=== PATIENT | female | born 2000 | race Caucasian/White ===

== ENCOUNTER 2021-08-12 11:26 | Emergency (ER) | payer MEDICAID ==
[2021-08-12 12:37] VITALS: BP 108/48
[2021-08-12 12:38] LABS: BASOPHILS % (AUTO) 0.8 %; EOSINOPHILS # (AUTO) 0.1 10^3/uL (0.0-0.7); EOSINOPHILS % (AUTO) 2.1 %; HCT - HEMATOCRIT 39.7 % (37.0-47.0); HGB - HEMOGLOBIN 13.5 g/dL (12.0-16.0); LYMPHOCYTES # (AUTO) 1.6 10^3/uL (1.5-3.5); LYMPHOCYTES % (AUTO) 30.6 %; MEAN CORPUSCULAR HEMOGLOBIN 30.6 pg (27.0-31.0); MEAN PLATELET VOLUME 9.5 fL (7.9-10.8); MONOCYTES # (AUTO) 0.7 10^3/uL (0.0-1.0); MONOCYTES % (AUTO) 13.3 %; NEUTROPHILS # (AUTO) 2.8 10^3/uL (1.5-6.6); PLT - PLATELET COUNT 259 10^3/uL (130-450); RED BLOOD COUNT 4.41 10^6/uL (4.20-5.40); RED CELL DISTRIBUTION WIDTH 12.7 % (12.0-15.0); WHITE BLOOD COUNT 5.3 x10^3/uL (4.8-10.8)
[2021-08-12 12:51] LABS: ALBUMIN 4.9 g/dL (3.2-5.5); ALBUMIN/GLOBULIN RATIO 1.8 (1.0-2.2); BILIRUBIN,TOTAL 1.1 mg/dL (0.2-1.0); CALCIUM 9.4 mg/dL (8.5-10.3); CREATININE 0.7 mg/dL (0.4-1.0); POTASSIUM 3.8 mmol/L (3.5-5.0); TOTAL PROTEIN 7.7 g/dL (6.7-8.2)
--- NOTE | 2021-08-12 12:53 | ED Physician Documentation ---
History of Present Illness - Stated complaint Stated Complaint: LT HAND SWELLING - Chief complaint Chief Complaint: Ext Problem - Additonal information Additional information: 21-year-old female presents the emergency department for evaluation of finger pain and swelling. She reports that she developed swelling of her middle and ring finger on left hand 3 days ago. She did go to a walk-in clinic and was started on Bactrim for presumptive cellulitis. Despite taking this she has had no reduction in swelling and has now noticed that her right ring finger does have some swelling at the PIP joint. No history of similar in the past. No fevers. No falls or trauma. She denies any personal history of autoimmune disease or arthritis but does have a strong family history of autoimmune disorder. Review of Systems Constitutional: denies: Fever, Chills Eyes: reports: Reviewed and negative Ears: reports: Reviewed and negative Nose: reports: Reviewed and negative Cardiac: reports: Reviewed and negative Respiratory: reports: Reviewed and negative GI: reports: Reviewed and negative : reports: Reviewed and negative Skin: denies: Rash, Lesions, Abrasion (s), Laceration (s), Bite / sting Musculoskeletal: reports: Joint pain (Left ring and middle finger and right ring finger), Joint swelling Neurologic: reports: Reviewed and negative Psychiatric: reports: Reviewed and negative PD PAST MEDICAL HISTORY - Present Medications Home Medications: Ambulatory Orders Medication Instructions Recorded Confirmed predniSONE [Deltasone] 40 mg PO DAILY 5 Days #10 tab 08/12/21 - Allergies Allergies/Adverse Reactions: Allergies Allergy/AdvReac Type Severity Reaction Status Date / Time No Known Drug Allergies Allergy Verified 08/12/21 11:36 PD ED PE EXPANDED - General General: Alert, No acute distress, Well developed/nourished, Disheveled, poorly kept - Cardiac Cardiac: Regular Rate, Radial strong equal, Pedal strong equal, Cap refill < 2 sec. No: Murmur Present - Respiratory Respiratory: Clear to ausultation aarti. No: Distress, Labored - Abdomen Abdomen: Normal Bowel sounds. No: Tender to palpation - Derm Derm: Normal color, Warm and dry, Other (Moderate swelling of the right middle finger with mild erythema. Swelling is most prominent however at the PIP and DIP joint limiting flexion and extension. Mild swelling at the distal DIP joint of the ring finger. Mild swelling right distal DIP joint ring finger). No: Rash, Papules - Extremities Extremities: Normal, Tenderness, Swelling (left middle finger, left distal tip index finger swelling. No ecchymosis. No significant erythema. Moderately tender. right distal DIP joint ring finger swelling). No: Deformity Results - Vitals Vitals: Vital Signs - 24 hr 08/12/21 08/12/21 11:33 12:36 Temperature 36.6 C 36.6 C Heart Rate 121 H 78 Respiratory 16 16 Rate Blood Pressure 123/58 L 108/48 L O2 Saturation 100 100 Oxygen O2 Source Room air - Labs Labs: Laboratory Tests 08/12/21 08/12/21 08/12/21 12:32 12:32 12:32 WBC 5.3 RBC 4.41 Hgb 13.5 Hct 39.7 MCV 90.0 MCH 30.6 MCHC 34.0 RDW 12.7 Plt Count 259 MPV 9.5 Neut # (Auto) 2.8 Lymph # (Auto) 1.6 [place] # (Auto) 0.7 Eos # (Auto) 0.1 Baso # (Auto) 0.0 Absolute Nucleated RBC 0.00 Nucleated RBC % 0.0 ESR Sodium 133 L Potassium 3.8 Chloride 102 Carbon Dioxide 22 Anion Gap 9.0 BUN 12 Creatinine 0.7 Estimated GFR (MDRD) 104 Glucose 89 Calcium 9.4 Total Bilirubin 1.1 H AST 20 ALT 16 Alkaline Phosphatase 45 C-Reactive Protein Total Protein 7.7 Albumin 4.9 Globulin 2.8 Albumin/Globulin Ratio 1.8 Lipase 31 Rheumatoid Factor NEGATIVE 08/12/21 08/12/21 12:32 12:32 WBC RBC Hgb Hct MCV MCH MCHC RDW Plt Count MPV Neut # (Auto) Lymph # (Auto) [place] # (Auto) Eos # (Auto) Baso # (Auto) Absolute Nucleated RBC Nucleated RBC % ESR 4 Sodium Potassium Chloride Carbon Dioxide Anion Gap BUN Creatinine Estimated GFR (MDRD) Glucose Calcium Total Bilirubin AST ALT Alkaline Phosphatase C-Reactive Protein < 1.0 Total Protein Albumin Globulin Albumin/Globulin Ratio Lipase Rheumatoid Factor PD MEDICAL DECISION MAKING - ED course Complexity details: reviewed results, re-evaluated patient, considered differential, d/w patient ED course: 21 female presents emergency department for evaluation of 3 to 4 days multiple finger swelling and joint pains. Was initially seen at a local walk-in clinic and started on Bactrim for presumed cellulitis. She has no fevers and a limited erythema and given that there are now multiple fingers and joints involved I am more suspicious of an inflammatory disorder. Her screening CBC is unremarkable without leukocytosis. ESR, CRP and Rh factor are all negative. An ART is pending. Patient will be started on a 5-day course of prednisone. She is cautioned to establish with a primary care provider for longer-term evaluation given her family history of autoimmune disorder. Otherwise emergent return precautions discussed for worsening symptoms Departure - Departure Disposition: 01 Home, Self Care Clinical Impression: Swelling of finger of both hands Condition: Stable Record reviewed to determine appropriate education?: Yes Prescriptions: predniSONE [Deltasone] 40 mg PO DAILY 5 Days #10 tab Comments: Corinna I am going to call you later this afternoon or perhaps this evening to discuss the lab results that have not yet resulted. However I think you should continue to take the Bactrim that was previously prescribed for possibility of infection. But I would like you to fill the prescription for the prednisone and take every day for the next 5 days. It is possible that what you are experiencing is a joint swelling or inflammatory disorder. In the long-term, especially given your family history of autoimmune disorder, is going to be important that you establish with a primary care doctor. If despite the antibiotics and the steroids you are still having worsening swelling or pain then please return to the ER especially if you develop any fevers. Discharge Date/Time: 08/12/21 13:10
[2021-08-12 13:19] LABS: RHEUMATOID FACTOR NEGATIVE (Negative)
[2021-08-17 22:37] LABS: ANA SCREEN POSITIVE (NEGATIVE)
== END 2021-08-12 13:10 | disposition home or self-care (01) ==
LOC: ED 11:26
DX: M25.442 Effusion, left hand (principal); M25.441 Effusion, right hand
CPT/HCPCS: 36415; 80053; 83690; 85025; 85651; 86038; 86140; 86430; 99283